=== PATIENT | female | born 1960 | race Caucasian/White ===

== ENCOUNTER → 2020-03-24 14:50 | Outpatient (CLI) | payer OTHER, SELFPAY ==
--- NOTE | ~2020-03-24 | XR_ITS ---
EXAMINATION: XR chest 2V 03/24/2020 16:25 INDICATION: Shortness of breath PROCEDURE: 2 view chest COMPARISON: 02/17/2009 FINDINGS: The lungs are clear. The cardiomediastinal silhouette is within normal limits. There are no pleural effusions. There is no pneumothorax suspected. IMPRESSION: 1: NO ACUTE CARDIOPULMONARY DISEASE. Reviewed, dictated and finalized at location A.
== END ==
PROVIDERS: PCP Family Medicine; Visit Provider Physician Assistant
DX: R06.02 Shortness of breath (principal)
CPT/HCPCS: 71046

== ENCOUNTER 2021-07-15 07:25 | Outpatient (RCR) | payer OTHER, SELFPAY ==
[2021-07-15] MEDS: FAMOTIDINE 20 MG TABLET PO (07:37)
[2021-07-15] MEDS: diphenhydrAMINE HCl CAP 25 MG CAPSULE PO (07:37)
[2021-07-15] MEDS: ACETAMINOPHEN 325 MG TABLET 650 MG PO (07:37)
[2021-07-15 07:43] VITALS: BP 132/67; PULSE 91; RESP 20; TEMP 36.5; O2SAT 96
[2021-07-15 09:05] VITALS: BP 126/67; PULSE 64; O2SAT 93
--- NOTE | 2021-07-16 08:44 | PC.NURSE ---
Called Robert and she is not feeling much better but stated no worse so she feels it was good to get the infusion. She has no other questions at this time.
== END 2021-07-15 17:00 ==
LOC: AMCINF 07:25
PROVIDERS: PCP Physician Assistant; Visit Provider Internal Medicine Hematology & Oncology
DX: U07.1 COVID-19 (principal)
CPT/HCPCS: A9270; M0245; Q0245

== ENCOUNTER 2023-04-14 07:34 | Outpatient (CLI) | payer OTHER, SELFPAY ==
--- NOTE | ~2023-04-14 | CT_ITS ---
EXAMINATION:CT diagnostic chest wo con DATE: 04/14/2023 07:51 INDICATION: Shortness of breath. TECHNIQUE: Computed tomography (CT) of the chest was performed without intravenous contrast. Automate d exposure control and iterative reconstruction technique were employed. The dose-length product (DLP ) was 136.37 mGy-cm. COMPARISON: Chest CT 02/17/2009 FINDINGS: The lungs demonstrate mild atelectasis. Calcified pulmonary nodules are consistent with old granulomatous disease. No pleural effusion. The heart size is normal. No pericardial effusion. Main pulmonary artery is enlarged, consistent with pulmonary arterial hypertension. There are changes of c holecystectomy. There are surgical clips near the stomach. There is mild thoracic spondylosis. IMPRESSION: 1. Enlarged main pulmonary artery, consistent with pulmonary arterial hypertension. Reviewed, dictated and finalized at location A. IMPRESSION: 1. Enlarged main pulmonary artery, consistent with pulmonary arterial hypertens ion.
== END 2023-04-14 07:35 | disposition home or self-care (01) ==
LOC: ANHIMG 07:39
PROVIDERS: Visit Provider Internal Medicine Pulmonary Disease
DX: R06.02 Shortness of breath (principal); I77.89 Other specified disorders of arteries and arterioles; I28.9 Disease of pulmonary vessels, unspecified
CPT/HCPCS: 71250

== ENCOUNTER 2023-04-20 14:29 | Outpatient (CLI) | payer OTHER, SELFPAY ==
--- NOTE | 2023-04-20 14:42 | ECHO_ITS ---
Patient Info Name: Vicenta Jones Age: 63 years : 1960 Gender: Female Ht: 58 in Wt: 140 lbs BSA: 1.64 m2 HR: 91 bpm BP: 124 / 80 mmHg Heart Rhythm: Sinus Rhythm Technical Quality: Good Exam Date: 04/20/2023 3:12 PM Exam Location: [facility] Patient Status: Outpatient Admit Date: 04/20/2023 Staff Ordering Physician: Mian Bell MD Auto Refinisher: Nupur Carl RDCS Attending Provider: Mian Bell MD Referring Physician: Charisma, Steve Coronel MD; Exam Type: CA echo doppler color flow Study Info Indications - SOB Complete two-dimensional, color flow and Doppler transthoracic echocardiogram is performed. Summary 1. Complete two-dimensional, color flow and Doppler transthoracic echocardiogram is performed. 2. Left ventricular chamber dimension is normal. 3. Left ventricular systolic function is normal, estimated at 65-70%. 4. There is mild concentric increased left ventricular wall thickness. 5. The left ventricular diastolic function is grade I diastolic dysfunction. 6. No pulmonary hypertension, estimated pulmonary arterial systolic pressure is 11 mmHg. 7. There is trace pulmonic regurgitation. Left Ventricle Tissue doppler E/e' is not performed. Left ventricular chamber dimension is normal. Left ventricular systolic function is normal, estimated at 65-70%. There is mild concentric increased left ventricular wall thickness. The left ventricular diastolic function is grade I diastolic dysfunction. Right Ventricle Right ventricular systolic function is normal and with normal TAPSE 2.0 cm. Right ventricular chamber dimension is normal. Left Atria Left atrial chamber dimension is normal. Right Atria Right atrial chamber dimension is normal. Aortic Valve The aortic valve is trileaflet. There is no aortic valve stenosis. There is no aortic valve regurgitation. Pulmonic Valve There is trace pulmonic regurgitation. Mitral Valve There is no mitral valve stenosis. There is no mitral valve regurgitation. Tricuspid Valve There is no tricuspid valve regurgitation. No pulmonary hypertension, estimated pulmonary arterial systolic pressure is 11 mmHg. Pericardium/Pleural There is no pericardial effusion. Inferior Vena Cava Normal inferior vena cava with >50% collapse upon inspiration consistent with normal right atrial pressure, 5 mmHg. Aorta The aortic root size at the sinus of Valsalva is normal. Left Ventricular Outflow Tract Name Value Normal LVOT 2D LVOT Diameter 1.8 cm LVOT Doppler LVOT Peak Gradient 8 mmHg LVOT Mean Gradient 3 mmHg LVOT VTI 30 cm LVOT VTI/AV VTI Ratio 0.9 LVOT Stroke Volume 73 ml LVOT CO 5.6 l/min LVOT CI 3.4 l/min/m2 Pulmonic Valve Name Value Normal RVOT Doppler RVOT Peak Gra
== END 2023-04-20 14:30 | disposition home or self-care (01) ==
PROVIDERS: Referring Provider Internal Medicine; Visit Provider Internal Medicine Pulmonary Disease
DX: R06.02 Shortness of breath (principal)
CPT/HCPCS: 93306

== ENCOUNTER 2023-05-02 10:15 | Outpatient (CLI) | payer OTHER, SELFPAY ==
--- NOTE | 2023-05-03 13:33 | WPDPFTINT ---
PFT Procedure Performed PFT Procedure Performed Spirometry with Pre/Post Bronchodilator Plethysmography (Lung Vol) Diffusing Cap (DLCO) Flow Vol Loop PFT Interpretation Lung volumes were measured with the body plethysmography method. Lung volumes are unremarkable. Spirometry showed normal expiratory flow rates and a normal FEV1 to FVC ratio of 91%. Following administration of a bronchodilator there was no significant increase in the expiratory flow rates. Lung diffusion capacity is near normal at 70% predicted. The flow-volume loop is unremarkable. Impression: Spirometry, lung volumes, lung diffusion capacity all within the normal range.
--- NOTE | 2023-05-03 13:35 | WPDSIXMINUTE ---
Six Minute Walk Procedure Procedure Performed Pulmonary Stress Test (6 min walk) Six Minute Walk Six Minute Walk: This 6 minute walk test was carried out with the patient breathing room air. The pre- walk baseline oxyhemoglobin saturation was 93%. The patient walked 381 m with no stops during testing. During the walk, oxyhemoglobin saturation remained in the range of 91% to 95%. Impression: No evidence of oxyhemoglobin desaturation on this testing.
== END 2023-05-02 10:16 | disposition home or self-care (01) ==
PROVIDERS: Visit Provider Internal Medicine Pulmonary Disease
DX: R06.02 Shortness of breath (principal)
CPT/HCPCS: 94060; 94618; 94726; 94729

== ENCOUNTER 2023-05-16 09:18 | Outpatient (CLI) | payer OTHER, SELFPAY ==
--- NOTE | 2023-05-28 15:28 | WPDSLEEPSTUD ---
Sleep Study Date of Study: 05/16/23 Ordering Provider: Mian Bell MD Interpreting Physician: Nayana Trevino MD Sleep Study Type: Split Polysomnogram Height: 1.47 m Weight: 63.503 kg Body Mass Index: 29.2 Neck Circumference (inches): 13 [place]: 8 Reason for Sleep Study Frequent snoring, morning headaches, occasional memory problems Sleep History Vicenta Jones is a 63-year-old woman with labored breathing, especially with exertion for the last 2 years. Medical co-morbidities include RA, ankylosing spondylitis, and COVID in 2020. While sleeping she uses 2 liters/minute oxygen and takes gabapentin 300 mg at bedtime. She occasionally awakens from sleep short of breath. She occasionally wakes at night with heartburn, belching or coughing.??She frequently snores, occasionally snores loudly enough that others complain. She has trouble sleeping when she has a cold. She rarely wakes up gasping for breath during the night. She rarely has breathing problems at night. She rarely sweats excessively at night. She rarely notices her heart pounding or beating irregularly during the night. She occasionally falls asleep during the day. She rarely falls asleep involuntarily, never falls asleep while driving. She never experiences loss of muscle tone with strong emotion. She rarely has daytime difficulties due to excessive sleepiness, she is retired. She never feels paralyzed on waking or falling asleep. She occasionally experiences vivid dreams upon waking or falling asleep. She never feels afraid of going to sleep. She never has nightmares. She rarely recalls her dreams. She frequently has thoughts racing through her mind. She rarely feels sad or depressed. She occasionally feels anxiety. She never notices parts of her body jerk. She never kicks during the night. She rarely feels crawling or aching feelings in her legs. She rarely feels leg pain at night. She rarely has morning jaw pain, and rarely grinds her teeth at night. She frequently feels bothered by pain during the day, occasionally awakened by pain during the night. She frequently wakes up feeling stiff in the morning, rarely wakes feeling sore or achy in the morning. She frequently awakens with pain in her neck, spine, or joints. She has fatigue, morning headaches, palpitations, occasional memory problems and dizziness. Normal bedtime is 10:30 p.m., falling asleep within 30-60 minute. She wakes up 1-2 times during the night. While awake, she may go to the bathroom, try deep breathing. She is able to return to sleep within 5-10 minutes. She reports getting between 6-7 hours of sleep per night. Her wake time is 6:30 a.m. She ramon snot feel refreshed on waking. On occasion, she takes a nap in the afternoon or evening. A short nap lasting 5-10 minutes is not refreshing. She feels better in the afternoon compared to other times of day. Habits:?Tobacco:Never Caffeine: 1 cup of coffee in the morning. Alcohol: Socially. Recreational substances: none [facility] Past Medical History Medical History (Updated 05/28/23 @ 15:38 by Nayana Trevino MD) Ankylosing spondylitis Bunion (~2011) Cataract (~2008) Colon polyp Colonoscopy 06/10/22. Repeat 3-5 years Deviated septum (~1998) GERD (gastroesophageal reflux disease) History of Crotes's esophagus HLD (hyperlipidemia) Nocturnal hypoxemia Rheumatoid arthritis Surgical History Surgical History H/O section (~1991) History of Maggi fundoplication (~2001) Hx of breast reduction, elective (~2007) Hx of cholecystectomy (~2003) Family History Family History Grandparent Diabetes mellitus Carcinoma of colon Father Family history of elevated blood lipids Acute myocardial infarction, Onset Age: 77 Family history of chronic obstructive pulmonary disease Family history of emphysema Mother Family histor
[2023-05-29 09:24] VITALS: BMI 29.2
== END 2023-05-17 07:43 | disposition home or self-care (01) ==
LOC: ANHCSM 09:20
PROVIDERS: Visit Provider Internal Medicine Pulmonary Disease
DX: G47.10 Hypersomnia, unspecified (principal); G47.33 Obstructive sleep apnea (adult) (pediatric)
CPT/HCPCS: 95811

== ENCOUNTER 2025-04-17 10:23 | Outpatient (CLI) | payer BC, SELFPAY ==
--- NOTE | ~2025-04-17 | XR_ITS ---
XR lumbar spine min 4V Indication: Ankylosing spondylitis of unspecified sites in spine Comparison: None Findings: Levoconvex scoliosisModerate loss of vertebral height throughout. There is a remote superior endplate fracture of L2. Grade 1 anterolisthesis of L4 on L5, no acute fracture. Severe loss of disc height at L1-2, L4-5 and L5-S1. Soft tissues unremarkable Impression: No acute abnormality. Reviewed, dictated and finalized at location A. Impression: No acute abnormality.
--- NOTE | ~2025-04-17 | XR_ITS ---
EXAMINATION: XR foot RT 2V, 04/17/2025 10:31 CDT HISTORY: Ankylosing spondylitis of unspecified sites in spine COMPARISON: No comparisons available. Findings: Postsurgical changes proximal phalanx first digit, no acute fracture Moderate degenerative changes of the first metatarsophalangeal joint, no erosions identified. Soft tissues unremarkable. Impression: No acute fracture or malalignment. Reviewed, dictated and finalized at location A. Impression: No acute fracture or malalignment.
--- NOTE | ~2025-04-17 | XR_ITS ---
EXAMINATION: XR sacroiliac joints min 3V, 04/17/2025 10:31 CDT HISTORY: Ankylosing spondylitis of unspecified sites in spine COMPARISON: No comparisons available. Findings: No acute fracture or malalignment. Minimal sclerosis of the sacroiliac joints, there are no erosions or bridging osteophyte formation. Soft tissues unremarkable. Impression: No acute fracture or malalignment. Reviewed, dictated and finalized at location A. Impression: No acute fracture or malalignment.
--- NOTE | ~2025-04-17 | XR_ITS ---
EXAMINATION: XR hand LT 2V, 04/17/2025 10:31 CDT HISTORY: Ankylosing spondylitis of unspecified sites in spine COMPARISON: No comparisons available. Findings: No acute fracture or malalignment. Severe degenerative changes of the distal interphalangeal joints with small erosions especially of the third digit Soft tissues unremarkable. Impression: No acute fracture or malalignment. Reviewed, dictated and finalized at location A. Impression: No acute fracture or malalignment.
--- NOTE | ~2025-04-17 | XR_ITS ---
EXAMINATION: XR foot LT 2V, 04/17/2025 10:31 CDT HISTORY: Ankylosing spondylitis of unspecified sites in spine COMPARISON: No comparisons available. Findings: No acute fracture or malalignment. No significant degenerative changes. Soft tissues unremarkable. Impression: No acute fracture or malalignment. Reviewed, dictated and finalized at location A. Impression: No acute fracture or malalignment.
--- NOTE | ~2025-04-17 | XR_ITS ---
EXAMINATION: XR hand RT 2V, 04/17/2025 10:31 CDT HISTORY: Ankylosing spondylitis of unspecified sites in spine COMPARISON: No comparisons available. Findings: No acute fracture or malalignment. Severe degenerative changes of the distal interphalangeal joints with small erosions. Soft tissues unremarkable. Impression: No acute fracture or malalignment. Reviewed, dictated and finalized at location A. Impression: No acute fracture or malalignment.
== END 2025-04-17 10:24 | disposition home or self-care (01) ==
LOC: MICIMG 10:25
PROVIDERS: PCP Family Medicine; Visit Provider Internal Medicine
DX: M45.9 Ankylosing spondylitis of unspecified sites in spine (principal)
CPT/HCPCS: 72110; 72202; 73120; 73620

== ENCOUNTER 2025-05-08 07:50 | Outpatient (CLI) | payer BC, SELFPAY ==
--- NOTE | ~2025-05-08 | MR_ITS ---
EXAMINATION: MR pelvis wo con DATE: 05/08/2025 08:37 INDICATION: Spondylitis of multiple sites in spine. Chronic low back pain. TECHNIQUE: Magnetic resonance imaging (MRI) of the pelvis was performed without intravenous contrast. COMPARISON: Sacroiliac joint radiographs 04/17/2025 FINDINGS: There is lumbar levocurvature and severe spondylosis. No fracture. There is mild osteoarthritis of the sacroiliac joints. There is a 1.3 cm uterine fibroid. IMPRESSION: 1. Mild osteoarthritis of the sacroiliac joints. No evidence of inflammatory arthropathy. Reviewed, dictated and finalized at location E. IMPRESSION: 1. Mild osteoarthritis of the sacroiliac joints. No evidence of inflammatory ar thropathy.
--- NOTE | ~2025-05-08 | MR_ITS ---
EXAMINATION: MR lumbar spine wo con DATE: 05/08/2025 08:27 INDICATION: Spondylolysis of multiple sites in spine. Chronic low back pain. TECHNIQUE: Magnetic resonance imaging (MRI) of the lumbar spine was performed without intravenous contrast. Sequences included sagittal T2-weighted FSE, sagittal T2-weighted FS FSE, sagittal T1-weighted FSE, and axial T2-weighted FSE. COMPARISON: None FINDINGS: There is 6 degrees levocurvature of lumbar spine. There is 5 mm anterolisthesis of L4-L5. Vertebral body heights are normal. There is severely decreased disc height at L1-L2, mildly decreased disc height at L3-L4, and severely decreased disc height at L4-L5 and L5-S1. The distal spinal cord signal intensity is normal. The conus medullaris is at L1. The following disc levels are specifically discussed: L1-L2: The disc is bulging and has an annular fissure. There is mild bilateral facet joint osteoarthritis. There is no neural foraminal stenosis. There is mild central canal stenosis. L2-L3: The disc is bulging. There is mild bilateral facet joint osteoarthritis. There is mild left neural foraminal stenosis. There is mild central canal stenosis. L3-L4: The disc is bulging and has an annular fissure. There is mild bilateral facet joint osteoarthritis. There is mild bilateral neural foraminal stenosis. There is mild central canal stenosis. L4-L5: The disc is bulging and has an annular fissure. There is severe bilateral facet joint osteoarthritis. There is mild bilateral neural foraminal stenosis. There is mild central canal stenosis. L5-S1: The disc is bulging and has an annular fissure. There is severe bilateral facet joint osteoarthritis. There is mild right and moderate left neural foraminal stenosis. There is mild central canal stenosis. IMPRESSION: 1. Severe lumbar spondylosis. Reviewed, dictated and finalized at location E.
== END 2025-05-08 07:51 | disposition home or self-care (01) ==
PROVIDERS: PCP Family Medicine; Visit Provider Internal Medicine
DX: M47.898 Other spondylosis, sacral and sacrococcygeal region (principal); M46.89 Other specified inflammatory spondylopathies, multiple sites in spine
CPT/HCPCS: 72148; 72195